=== PATIENT | male | born 1940 | race Asian ===

== ENCOUNTER → 2023-08-19 06:54 | Outpatient (REF) | payer MEDICARE, SELFPAY | LOC: RCS 06:54 | PROVIDERS: ATTENDING PHYSICIAN Internal Medicine Cardiovascular Disease; FAMILY PHYSICIAN Internal Medicine | DX: I25.118 Atherosclerotic heart disease of native coronary artery with other forms of angina pectoris (principal); R00.1 Bradycardia, unspecified | CPT/HCPCS: 78452; 93017; A9500; J2785 ==

== ENCOUNTER → 2024-01-05 10:16 | Outpatient (REF) | payer MEDICARE, SELFPAY | LOC: HWRAD 10:16 | PROVIDERS: ATTENDING PHYSICIAN Specialist; FAMILY PHYSICIAN Internal Medicine | DX: D41.02 Neoplasm of uncertain behavior of left kidney (principal) | CPT/HCPCS: 74178; Q9967 ==

== ENCOUNTER 2024-02-07 16:44 | Emergency (ER) | payer MEDICARE, SELFPAY ==
[2024-02-07 16:46] VITALS: BP 146/70
[2024-02-07 17:00] LABS: % Basophils 0.7 % (0-2); % Eosinophils 5.3 % (0-6); % Immature Granulocytes 0.1 % (0-0.5); % Lymphocytes 16.2 % (20.5-51.1); % Monocytes 8.8 % (1.7-9.3); % Neutrophils 68.9 % (42.2-75.2); Absolute Basophils 0.1 10^3/uL (0-0.2); Absolute Eosinophils 0.4 10^3/uL (0-0.7); Absolute Lymphocytes 1.1 10^3/uL (1.2-3.4); Absolute Monocytes 0.6 10^3/uL (0.1-0.6); Absolute Neutrophils 4.7 10^3/uL (1.4-6.5); Hematocrit 38.5 % (39.0-52.0); Hemoglobin 13.1 g/dL (13.0-18.0); Mean Platelet Volume 9.7 fL (7.4-10.4); Nucleated Red Blood Cells % 0 % (-); Platelet Count 144 10^3/uL (130-400); Red Blood Cell Count 4.23 10^6/uL (4.70-6.10); White Blood Cell Count 6.8 10^3/uL (4.8-10.8)
[2024-02-07 17:26] LABS: ALT (SGPT) 17 U/L (0-50); AST (SGOT) 24 U/L (17-59); Albumin 4.6 g/dl (3.5-5.0); Alkaline Phosphatase 82 U/L (38-126); Blood Urea Nitrogen 41 mg/dl (9-20); Calcium 10.1 mg/dl (8.4-10.2); Carbon Dioxide 25 mmol/L (22-30); Chloride 101 mmol/L (98-107); Glucose 203 mg/dl (70-99); Potassium 4.1 mmol/L (3.5-5.1); Sodium 141 mmol/L (135-145); Total Bilirubin 0.2 mg/dl (0.2-1.3); Total Protein 7.6 g/dl (6.3-8.2); eGFR 54.85
--- NOTE | 2024-02-07 21:11 | ED.GENMED ---
History of Present Illness
General
Chief Complaint: Back Pain
Source: patient
Exam Limitations: none
Time Seen by Provider: 02/07/24 20:36
History of Present Illness
History of Present Illness:
This is a 83 year old male that comes in with c/o right lower back pain. State that this started last night and he has had the pain all day. States that he was unable to sleep last night due to the pain. States that there was no fall or injury to
the back. States that he has urinary frequency every hour. Denies any fever, chills, chest pain, SOB, abd pain, nausea, vomiting, diarrhea, headache, dizziness, urinary burning.
Past History
Past History
ED Past Medical History: CAD, Cancer (Left kidney cancer with radiation), HTN, Hypercholesterolemia, NIDDM and Other (Intracranial bleed)
ED Past Surgical History: Cardiac (Stent)
Social History
Tobacco: Non-smoker
Alcohol: None
Personal:
Living: with family
Review of Systems
Review of Systems
All Other Systems: ROS reviewed and negative except as documented in HPI and ROS
Constitutional: Reports no symptoms; Denies fever or chills
EENT: Reports no symptoms
Respiratory: Reports no symptoms; Denies cough or trouble breathing
Cardiac: Reports no symptoms; Denies chest pain
ABD/GI: Denies abdominal pain, nausea, vomiting or diarrhea
: Reports frequency and flank pain (Right sided); Denies dysuria or urgency
Musculoskeletal: Reports back pain (Right low back pain)
Skin: Reports no symptoms
Neurological: Reports no symptoms; Denies dizzy or headache
Psychiatric: Reports no symptoms
Phy Exam
General Physical Exam
General Presentation: well appearing and no apparent distress
General age: appears stated age
General Skin: warm and dry
General Habitus: elderly
General Mental: alert
General Hydration: dry mucous membranes
ENT Exam
ENT Exam: TM's normal, pharynx normal and neck supple
Eye Exam
Eye Exam: EOMI
Cardiovascular Exam
Cardiovascular Exam: regular rate/rhythm, no edema, no murmur and normal peripheral pulses
Pulmonary Exam
Pulmonary Exam: lungs clear, no respiratory distress, no rales, chest non tender, no crackles, no rhonchi, no wheezing and no cough
Gastrointestinal Exam
Gastrointestinal Exam: normal bowel sounds, non tender, soft, no organomegaly, no pulsatile mass, non distended and no cva tenderness
Musculoskeletal Exam
Musculoskeletal Exam: full ROM, back pain (Low back pain tenderness with palpation) and no edema
Skin Exam
Skin Exam: normal color, warm/dry, no rash and no petechia
Psychiatric Exam
Psychiatric Exam: normal mood/affect
Course
Orders/Labs/Results
Orders:
Orders
02/07/24 16:53
CMP [Comprehensive Metabolic Panel] Urgent
Complete Blood Count/With Diff Urgent
02/07/24 21:10
CT Abd/pel Without Iv Or Oral Urgent
Comment: History of kidney cancer left
Reason For Exam: Right flank pain
0.9% Sodium Chloride 1000 ml [Nss] 1,000 ml IV BOLUS
02/07/24 21:11
Acetaminophen [Tylenol] 1,000 mg PO NOW STA
02/07/24 21:31
Urinalysis Reflex To Culture Urgent
Date Specimen was Collected: 02/07/24
Time Specimen was Collected: 21:12
Abnormal Lab Results
02/07/24 02/07/24
16:53 21:31
RBC 4.23 L 10^6/uL
(4.70-6.10)
Hct 38.5 L %
(39.0-52.0)
Absolute Lymphs (auto) 1.1 L 10^3/uL
(1.2-3.4)
Lymphocytes % 16.2 L %
(20.5-51.1)
BUN 41 H mg/dl
(9-20)
Glucose 203 H mg/dl
(70-99)
Urine Glucose 3+ A
(Negative)
02/07/24 16:53
02/07/24 16:53
Dehydration. Hyperglycemia, Urine negative for infection.
Vital Signs
Initial and Last Documented VS:
Initial Vital Signs
Temp Pulse Resp BP Pulse Ox
98.1 F 58 18 146/70 97
02/07/24 16:46 02/07/24 16:46 02/07/24 16:46 02/07/24 16:46 02/07/24 16:46
Last Documented Vital Signs
Temp Pulse Resp BP Pulse Ox
98.1 F 58 18 183/76 99
02/07/24 16:46 02/07/24 22:11 02/07/24 22:11 02/07/24 22:57 02/07/24 22:11
MDM/Problems Addressed
Differential Diagnosis Includes:
Musculoskeletal pain, Renal calculus, Metastatic disease, Shingles
MDM/Problems Addressed:
This is a 83 year old male that comes in with c/o right low back/flank pain. States that this started last night and he was unable to sleep. States that the pain continued all day. States that he also has urinary frequency.
Will check labs. Urine and get CT scan.
Back into see patient and . Explained that the CT shows Degenerative changes in the spine but there are no renal calculus. Patient at this time has no rash but he is concerned since this provider mentioned shingles that this is shingles but the
rash has not come out yet. Patient was requesting a prescription at this time but explained that none would be given unless he started with a rash. Explained that the nerves from the back wrap around to the abd and that this is most likely due to
his degenerative changes. Patient can use Tylenol for pain but would be causes of NSAIDS due to his history of kidney cancer. Patient to return with any concerns.
Chronic conditions affecting care: Cancer (Kidney)
Acute Exacerbation and/or Progression of Chronic Illness:
NA
*Radiology
Radiology exam reviewed: radiology read reviewed (CT-There is no evidence of acute pathology. There are no obstructing renal or ureteral calculi. There is no hydronephrosis or hydroureter. There is a stable 9mm probably benign low-density mass in
the neck of the pancreas. There is a stable 1cm low-density mass in the left adrenal which most likely ) and all reviewed NAD by ED Provider (CT cont- is adrenal adenoma. There is multilevel lumbar degenerative disc disease. There area stable 20%
compression fracture of the superior endplate of L2. Stable 2.5cm left renal cyst. Prostatomegaly. )
*Pulse Oximetry
Patient hypoxic: no
*EKG
Interpreted by ED Provider?: NA
Rate: EKG- N/A
*Underwear Trimmer Interpretation
Rate: Underwear Trimmer- N/A
*Critical Care Note
Total Time (30-74mins, 75-104mins- exclusive of procedures): Not Applicable
ED Attending Note
-
Portions of this chart may have been created with voice recognition software.� Occasional wrong word or��sound alike� substitutions may have occurred due to the inherent limitations of voice recognition software.
Discharge Plan
Departure
Patient Disposition: Home (Routine Discharge)
Date of Disposition: 02/07/24
Time of Disposition: 23:15
Patient with high blood pressure during this ER visit?: Yes
Condition: Good
Covid-19: Not Applicable
Discharge Problem:
Low back pain
Instructions: Low Back Pain (DC), BLOOD PRESSURE
Prescriptions:
No Action
multivitamin [Multi-Day] 1 EACH tablet
1 ea PO DAILY
ascorbic acid (vitamin C) [Vitamin C] 1,000 MG tablet
1,000 mg PO DAILY
diltiazem HCl 180 MG capsule,extended release 24hr
180 mg PO DAILY
tamsulosin 0.4 MG capsule
0.4 mg PO DAILY
Patient Comments:
HS
simvastatin 20 MG tablet
20 mg PO HS
Ca qkic-lxmrikqdq-tuit thistle [Liver-Kidney Cleanser] 1 EACH capsule
1 cap PO DAILY
omega 5-fwq-esk-fish oil 1 EACH capsule
1 ea PO DAILY
metoprolol succinate 100 MG tablet extended release 24 hr
100 mg PO DAILY
valsartan 160 MG tablet
160 mg PO DAILY
nitroglycerin 0.4 MG tablet, sublingual
0.4 mg sublingual [id number] PRN (Reason: chest pain) Qty: 25 2RF
metformin 500 MG tablet
500 mg PO BID Qty: 0 0RF
Rx Instructions:
HOLD post cath- do not resume until medical lab scientist calls with lab results. See Metformin sheet for instructions
clopidogrel 75 MG tablet
75 mg PO DAILY Qty: 30 11RF
aspirin 81 MG tablet,delayed release (DR/EC)
81 mg PO DAILY Qty: 1 0RF
semaglutide [Rybelsus] 7 MG tablet
1 tab PO DAILY
Patient Comments:
30 minutes pre breakfast
Referrals:
UNKNOWN - PT DOES,NOT KNOW [Family Provider] -
Activity Restrictions/Additional Instructions:
As discussed, your blood work shows dehydration. Please increase your water intake to 8-8oz glasses daily. Your CT is negative for any renal calculus but there is degenerative changes in the spine. This is most likely the cause of your back pain as
the nerves wrap around form the back to the abdomen. You may use Tylenol 1000mg every 6 hours as needed for pain. You may also use Lidoderm patch which is over the counter to the low back to help with pain. Follow up with the family doctor for
recheck. IF YOU HAVE INCREASED OR CHANGING PAIN, OR YOU HAVE ANY OTHER CONCERNS PLEASE RETURN TO THE EMERGENCY ROOM.
Interventions
Interventions:
*Risk Screen - Suicide Last Done: 02/07/24 16:46
*General Assessment Last Done: 02/07/24 16:46
*Neglect/Abuse Screening Last Done: 02/07/24 16:46
*ED COVID-19 Vaccine History Last Done: 02/07/24 16:46
ED-Musculoskeletal Assessment Last Done: 02/07/24 21:20
Discharge Date and Time
Print Language: HUNGARIAN
[2024-02-07] MEDS: NSS 1000 IV (21:35)
[2024-02-07 21:41] LABS: Urine Albumin Negative (Neg - Trace); Urine Bilirubin Negative (Negative); Urine Character Clear (Clear); Urine Color Yellow; Urine Glucose 3+ (Negative); Urine Ketone Negative (Negative); Urine Leukocyte Negative (Negative); Urine Nitrite Negative (Negative); Urine Occult Blood Negative (Negative); Urine Specific Gravity 1.015 (<1.030); Urine Urobilinogen Negative (Neg - 1+)
[2024-02-07 22:11] VITALS: BP 209/83
[2024-02-07 22:57] VITALS: BP 183/76
== END 2024-02-07 23:22 | disposition home or self-care (01) ==
LOC: EMR 16:44
PROVIDERS: Clinical Nurse Specialist Family Health; Emergency Medicine; EMERGENCY PHYSICIAN Emergency Medicine
DX: M54.50 Low back pain, unspecified (principal); I25.10 Atherosclerotic heart disease of native coronary artery without angina pectoris; I10 Essential (primary) hypertension; E78.00 Pure hypercholesterolemia, unspecified; E11.65 Type 2 diabetes mellitus with hyperglycemia; Z85.528 Personal history of other malignant neoplasm of kidney; Z95.5 Presence of coronary angioplasty implant and graft
CPT/HCPCS: 99284; 74176; 80053; 81003; 85025

== ENCOUNTER → 2024-11-08 13:00 | Outpatient (REF) | payer MEDICARE, SELFPAY ==
[2024-11-08 13:53] LABS: Hematocrit 40.6 % (39.0-52.0); Hemoglobin 13.8 g/dL (13.0-18.0); Mean Corp Hgb Conc. 34.0 g/dL (33.0-37.0); Mean Corpuscular Volume 92.1 fL (80.0-94.0); Nucleated Red Blood Cells % 0 % (-); Platelet Count 142 10^3/uL (130-400); Red Cell Dist. Width 13.4 % (11.5-14.5)
[2024-11-08 13:58] LABS: ALT (SGPT) 13 U/L (0-50); AST (SGOT) 19 U/L (17-59); Albumin 4.8 g/dl (3.5-5.0); Alkaline Phosphatase 47 U/L (38-126); Blood Urea Nitrogen 37 mg/dl (9-20); Calcium 9.7 mg/dl (8.4-10.2); Carbon Dioxide 31 mmol/L (22-30); Chloride 101 mmol/L (98-107); Glucose 201 mg/dl (70-99); Potassium 4.9 mmol/L (3.5-5.1); Sodium 138 mmol/L (135-145); Total Protein 8.3 g/dl (6.3-8.2); eGFR 46.19
== END ==
LOC: SDSPAT 13:00
PROVIDERS: ATTENDING PHYSICIAN Student in an Organized Health Care Education/Training Program; FAMILY PHYSICIAN Internal Medicine; REFERRING PHYSICIAN Internal Medicine Cardiovascular Disease
DX: I25.118 Atherosclerotic heart disease of native coronary artery with other forms of angina pectoris (principal)
CPT/HCPCS: 36415; 80053; 85025; 93005

== ENCOUNTER 2024-11-14 10:56 | Day surgery (SDC) | payer MEDICARE, SELFPAY ==
[2024-11-08 13:22] VITALS: BMI 21.8
[2024-11-14] VITALS (17 sets, daily range): BP systolic 76–189; BP diastolic 57–87
[2024-11-14 11:45] LABS: Glucose - Point of Care 134 mg/dl (70-99)
[2024-11-14 15:28] LABS: Glucose - Point of Care 107 mg/dl (70-99)
[2024-11-14 16:31] LABS: ACT-LR - POC 337 Seconds (116-155)
[2024-11-14 16:55] LABS: ACT-LR - POC 358 Seconds (116-155)
--- NOTE | 2024-11-14 19:33 | PTCARENOTE ---
received patient from catheter finisher and inspector with Right R band intact, distal pulse weak, monitor shows NSR. patient c/o BP cuff on left arm therefore put on right calf, still complained but informed patient we need to monitor his VSS. post EKG completed,
oriented to room and surroundings. at bedside. patient eating dinner.
--- NOTE | 2024-11-14 19:38 | ITS.CL.PN ---
Centrifugal Casting Machine Tender - Procedure Note
Procedure
Procedure Note:
CARDIAC CATHETERIZATION REPORT
Date of Procedure: 11/14/2024
Referring: Dr. Deonna Watson MD
Indication: CCS class III angina despite maximally tolerated medical therapy and large area ischemia on cardiac stress test
PROCEDURE(S)
1. left heart catheterization
2. coronary angiography
3. iFR diagonal
4. PCI with LOYDA to mid-LCx
5. IVUS of LCx
6. POBA of Ramus
ACCESS: 6F right radial artery (closure: radial band)
CATHETERS
1. 6F JR4
2. 6F JL3.5
3. 6F EBU3.5 guide catheter
MODERATE SEDATION: 75 minutes of moderate sedation was utilized. An independent medical staff manager was present to assist with and help manage the patient's level of consciousness and physiologic status.
HEMODYNAMIC DATA
LV 146/11 (EDP 23) mmHg
AO 160/65 (mean 104) mmHg
CORONARY ANGIOGRAPHY
Dominance: right
LM: large with minimal disease
LAD: large vessel giving rise to a single diagonal branch before being occluded within stent. There is an eccentric approximately 50% stenosis in the proximal LAD and diffuse mild ISR extending to the takeoff of the diagonal which itself has mild
diffuse disease. The LAD beyond the diagonal takeoff is 100% occluded within stent with no collaterals visualized to the apical LAD from either RCA or LM injections.
Ramus: small-moderate caliber vessel with a 95% proximal occlusion and diffuse mild disease
LCx: moderate caliber vessel giving rise to a small OM1, small jailed OM2, and moderate caliber OM3. There is a stent in the mid-vessel spanning OM2 with severe ISR
RCA: large vessel giving rise to a large RPDA and several small RPL branches. There is diffuse mild disease.
iFR of diagonal branch
An Omni wire was flushed and zeroed outside the body and then advanced to the left main. The wire introducer was removed and the catheter flushed with saline, after which pressure of the wire and guide were normalized. The wire was advanced to the
mid diagonal branch and iFR recorded at 0.93. iFR pullback was performed noting a diffuse pattern throughout the diagonal and proximal LAD. On return to the left main, iFR appropriately normalized to ~1.0, confirming lack of wire drift.
PCI with LOYDA to LCx and POBA of ramus intermedius
Heparin was given to maintain ACT>300. A Runthrough wire was placed in the OM3 and initial lesion preparation preformed with a 2.0 semicompliant balloon followed by a 2.5 NC balloon with full expansion. The vessel was stented with a 2.5x38 mm [place]
Story LOYDA covering the entire prior stented segment and a shorter segment of tuscarora disease proximally. IVUS demonstrated a 2.75 mm proximal reference vessel diameter. Post dilation was performed with a 2.5 mm NC balloon to high pressure
throughout including to 22 asa for 30 seconds at a focal area of mild under-expansion. Post dilation from this point back to the proximal stent edge was performed with a 2.75 mm NC balloon to high pressure. Final angiographic result was excellent.
Attention was then turned to the Ramus branch. While a small-moderate caliber vessel, the tertiary supplied was felt to be significant enough to warrant intervention in the setting of the patient's refractory symptoms. Given the high grade nature of
the disease, it was hoped that flow voodoo would result in improvement in the vessel caliber to allow for PCI with LOYDA. The Ramus required a Whisper wire for successful wiring. Lesion preparation was performed with a 2.0 semicompliant balloon
with full expansion at nominal pressure. Angiography demonstrated significant improvement in lesion appearance with only mild residual stenosis. Despite this, the vessel lumen did not improve markedly and did not appear to be of adequate caliber to
place even a 2.0 mm stent safely so decision was made to accept the POBA result. The wire and guide were removed and a TR band placed. The patient was loaded with 600 mg Plavix and admitted for overnight observation.
RADIATION: dose 976 mGy; DAP 63 Gy*cm2; fluoroscopy time 22.4 min
CONCLUSIONS
1. Coronary artery disease as described with new EMPLOYMENT CLERK of the mid-LAD (with no collaterals visualized), iFR negative diffuse disease in the proximal LAD extending into the single diagonal branch, severe ISR of the mid-LCx, and severe stenosis of a
small-moderate caliber Ramus branch.
2. Mildly elevated LV filling pressure and no aortic stenosis.
3. Successful IVUS-guided PCI with LOYDA to the mid-LCx with a 2.5x38 mm Jesse Story LOYDA post-dilated to high pressure with a 2.5 mm NC balloon throughout and with a 2.75 mm NC balloon proximally.
4. Successful POBA of the Ramus with a 2.0 mm semicompliant balloon inflated to nominal pressure. Despite flow voodoo, vessel caliber assess as inadequate for LOYDA placement so POBA result accepted.
RECOMMENDATIONS
1. Aggressive secondary prevention of CAD with goal LDL<55 and aggressive risk factor control
2. Assess anginal response to PCI; if significant residual angina despite OMT, consider stress testing (PET or MRI) of LAD. If territory ischemic, could consider referral to dedicated EMPLOYMENT CLERK PCI stone processing machine operator for LAD EMPLOYMENT CLERK PCI. Given lack of visualized
collaterals, high chance that this territory is infarcted and non-viable.
Copy to: Dr. Deonna Watson MD (administrative project coordinator); Davis Moses MD (PCP)
Signed: Orion Maldonado MD, PhD
[2024-11-14] MEDS: NORVASC 10 MG PO (20:20)
[2024-11-14] MEDS: FLOMAX 0.4 MG PO (20:20)
[2024-11-14] MEDS: LIPITOR 10 MG PO (20:22)
[2024-11-14 22:04] LABS: Glucose - Point of Care 214 mg/dl (70-99)
--- NOTE | 2024-11-15 03:13 | PTCARENOTE ---
Addendum entered by Juanita Castro RN 11/15/24 06:04:
pt refused blood work this morning
Original Note:
Pt SB on monitor. Right wrist post cath dsg CDI. Pt denies any pain this shift. OOB with x1 assist.
[2024-11-15 04:14] VITALS: BP 185/87
[2024-11-15 04:34] VITALS: BMI 21.0
[2024-11-15 06:53] VITALS: BP 166/74
[2024-11-15 06:57] LABS: Glucose - Point of Care 127 mg/dl (70-99)
[2024-11-15] MEDS: IMDUR (EXTENDED RELEASE) 30 MG PO (08:33)
[2024-11-15] MEDS: ORETIC 12.5 MG PO (08:33)
[2024-11-15] MEDS: FARXIGA 10 MG PO (08:33)
[2024-11-15] MEDS: PLAVIX 75 MG PO (08:33)
[2024-11-15] MEDS: TOPROL XL 100 MG PO (08:33)
[2024-11-15] MEDS: ASPIR LOW (ENTERIC COATED) 81 MG PO (08:33)
[2024-11-15] MEDS: BENICAR 40 MG PO (08:34)
[2024-11-15 09:28] LABS: Hematocrit 39.6 % (39.0-52.0); Hemoglobin 13.5 g/dL (13.0-18.0); Mean Corp Hgb Conc. 34.1 g/dL (33.0-37.0); Mean Corpuscular Volume 90.8 fL (80.0-94.0); Platelet Count 139 10^3/uL (130-400); Red Cell Dist. Width 13.3 % (11.5-14.5)
[2024-11-15 09:51] LABS: Blood Urea Nitrogen 25 mg/dl (9-20); Calcium 9.2 mg/dl (8.4-10.2); Carbon Dioxide 24 mmol/L (22-30); Chloride 105 mmol/L (98-107); Estimated Creatinine Clearance 49 ml/min; Glucose 257 mg/dl (70-99); HDL Cholesterol 50 mg/dl; LDL Cholesterol, Calculated 37 mg/dl; Potassium 3.7 mmol/L (3.5-5.1); Sodium 137 mmol/L (135-145); Very Low Density Lipoprotein 29 mg/dl (0-30); eGFR > 60.00
--- NOTE | 2024-11-15 09:52 | W.PN.CARDCBS ---
Addendum entered and electronically signed by Js Zambrano MD 11/15/24 10:16:
I saw and examined the patient.
The WARM IN WORKER's note was reviewed and I agree with the note.
Comment: Feeling well Cr stable, d/c
Original Note:
Today's Communication / Plan
-
Send BMP, CBC now
if stable, OK for d/c
DAPT w/asa, plavix- stop aggrenox
Impression / Plan
-
PCP: Davis Moses MD
CDY: Valentina Watson MD
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
Prior cardiac history includes CAD w/LCx PCI (2011) and LAD PCI x3 LOYDA ([id number], 2016) at OSH. Now presents with 2 month history intermittent exertional CP/SOB. Brought to director labor standards 11/14, s/p angioplasty and LOYDA to LCx instent restenosis as
well as angioplasty only to Ramus artery.
IMPRESSION:
CAD
s/p angioplasty/LOYDA to LCx ISR, POBA Ramus, 11/14/2024
Prior LCx PCI (2011)
Prior zywk-rnx-yijy LAD PCI x3 LOYDA (2016)
CVA (2022) w/memory/balance residual deficits
SDH, s/p fall (2017)
HTN
HLD
DM
CKD3a
Prior GIB w/transfusion
Anemia
BPH
JUANITA
PLAN:
Tele- SB 50s w/PAC, no VT/arrhythmia
radial cath site stable
DAPT w/asa, plavix- will stop aggrenox completely
Pt refused labs this morning- discussed the importance of labwork and creat post dye load- and pt understand and labs just sent/pending
Pre-cath Creat 1.5, GFR 46
continue isosorbide, metoprolol, olmesartan/HCT
BP elevated 150-160s- continue above meds plus amlodipine- monitor trends
lipid profile noted- continue pitavastatin
anemia noted and Hgb stable
Cardiac rehab consulted
If labs WNL, ok for d/c later.
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
Subjective
Date of Service: November 15, 2024
Denies cp/palps/dyspnea
oob ambulating
radial cath site without pain
Objective
Labs:
11/15/24 09:09
11/15/24 09:09
Labs
Hgb 13.5 g/dL (13.0-18.0) 11/15/24 09:09
Hct 39.6 % (39.0-52.0) 11/15/24 09:09
Plt Count 139 10^3/uL (130-400) 11/15/24 09:09
Sodium 137 mmol/L (135-145) 11/15/24 09:09
Potassium 3.7 mmol/L (3.5-5.1) 11/15/24 09:09
BUN 25 mg/dl (9-20) H 11/15/24 09:09
Creatinine 1.0 mg/dL (0.7-1.3) 11/15/24 09:09
Glucose 257 mg/dl (70-99) H 11/15/24 09:09
Vital Signs and I&O:
Vital Signs
Temp Pulse Resp BP Pulse Ox
98.2 F 72 16 166/74 98
11/15/24 06:51 11/15/24 07:00 11/15/24 06:51 11/15/24 06:53 11/15/24 06:51
Vital Signs
Temp Pulse Resp BP Pulse Ox
98.2 F 72 16 166/74 98
11/15/24 06:51 11/15/24 07:00 11/15/24 06:51 11/15/24 06:53 11/15/24 06:51
Intake & Output
11/13/24 11/14/24 11/15/24 11/16/24
06:59 06:59 06:59 06:59
Intake Total 200 / 200
Output Total 925 / 925 400 / 400
Balance -725 / -725 -400 / -400
Physical Exam
Physical Exam
AAOx3, MAEE 5/
RRR S1 S2 no murmurs
CTA bilat, non labored
soft abd, + bs
right radial cath site without ht/bleeding, non tender
bilat extremities w/palpable distal pulses, no edema
[2024-11-15 10:08] LABS: Glycohemoglobin (HgbA1c) 7.0 % (4.0-5.6)
--- NOTE | 2024-11-15 10:17 | W.DS.TRANS ---
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
-
Discharge Instructions:
Discharge Diagnosis/Procedures Angioplasty with stent to Left Circumflex artery
, and angioplasty only of ramus artery
Diet Low Cholesterol,Diabetic, Carb Controlled
Driving Restrictions No driving for 24 hours
Other Services Cardiac Rehab
Instructions:
Stand-Alone Forms: DC Instructions- Cath/EP Lab
Changes to Home Medications: Yes
Discharge Medications:
DC Medications w/original date entered in [employer] ([employer])
clopidogrel 75 mg tablet 75 mg PO DAILY ##30 11/09/16
metoprolol succinate 100 mg tablet,extended release 24 hr 100 mg PO DAILY 11/09/16
nitroglycerin 0.4 mg sublingual tablet 0.4 mg sublingual [id number] PRN chest pain #25 tabs 11/09/16
tamsulosin 0.4 mg capsule 0.4 mg PO HS 11/09/16
aspirin 81 mg tablet,delayed release 81 mg PO DAILY #1 tab 11/20/16
amlodipine 10 mg tablet 10 mg PO HS 11/07/24
empagliflozin 25 mg tablet (Jardiance) 25 mg PO DAILY 11/07/24
isosorbide mononitrate 30 mg tablet,extended release 24 hr 30 mg PO DAILY 11/07/24
metformin 500 mg tablet 500 mg PO BIDWMEAL 11/07/24
multivitamin 1 tab PO DAILY 11/07/24
olmesartan 40 mg-hydrochlorothiazide 12.5 mg tablet 1 tab PO DAILY 11/07/24
pitavastatin calcium 2 mg tablet (Livalo) 2 mg PO HS 11/07/24
vitamin A-vitamin C-vit E-min tablet 1 tab PO DAILY 11/07/24
Home Medication Changes
STOP: aggrenox
Pending Results: No
== END 2024-11-15 10:50 | disposition home or self-care (01) ==
LOC: CATH 10:56
PROVIDERS: Nurse Practitioner Adult Health; ATTENDING PHYSICIAN Student in an Organized Health Care Education/Training Program; FAMILY PHYSICIAN Internal Medicine; OTHER PHYSICIAN Internal Medicine Cardiovascular Disease
DX: I25.119 Atherosclerotic heart disease of native coronary artery with unspecified angina pectoris (principal); I12.9 Hypertensive chronic kidney disease with stage 1 through stage 4 chronic kidney disease, or unspecified chronic kidney disease; D64.9 Anemia, unspecified; E11.22 Type 2 diabetes mellitus with diabetic chronic kidney disease; E78.5 Hyperlipidemia, unspecified; G47.33 Obstructive sleep apnea (adult) (pediatric); Z95.5 Presence of coronary angioplasty implant and graft; N40.0 Benign prostatic hyperplasia without lower urinary tract symptoms; M48.56XD Collapsed vertebra, not elsewhere classified, lumbar region, subsequent encounter for fracture with routine healing; R91.8 Other nonspecific abnormal finding of lung field; Z79.899 Other long term (current) drug therapy; Z79.02 Long term (current) use of antithrombotics/antiplatelets; Z79.82 Long term (current) use of aspirin; Z79.84 Long term (current) use of oral hypoglycemic drugs; I69.811 Memory deficit following other cerebrovascular disease; I69.898 Other sequelae of other cerebrovascular disease; N18.31 Chronic kidney disease, stage 3a
CPT/HCPCS: 92978; 99152; 99153; 80048; 80061; 82962; 83036; 85027; 85347; 92920; 93005; 93458; 93799; C1725; C1753; C1769; C1874; C1894; C9600; Q9967

== ENCOUNTER → 2025-01-12 08:56 | Outpatient (REF) | payer MEDICARE, SELFPAY | LOC: RAD 08:56 | PROVIDERS: ATTENDING PHYSICIAN Specialist; FAMILY PHYSICIAN Internal Medicine | DX: D41.02 Neoplasm of uncertain behavior of left kidney (principal); N40.1 Benign prostatic hyperplasia with lower urinary tract symptoms | CPT/HCPCS: 74178; Q9967 ==

== ENCOUNTER 2025-01-26 09:35 | Emergency (ER) | payer MEDICARE, SELFPAY ==
[2025-01-26 09:36] VITALS: BP 136/68
[2025-01-26 11:15] LABS: Hematocrit 43.0 % (39.0-52.0); Hemoglobin 14.4 g/dL (13.0-18.0); Mean Corp Hgb Conc. 33.5 g/dL (33.0-37.0); Mean Corpuscular Volume 91.1 fL (80.0-94.0); Nucleated Red Blood Cells % 0 % (-); Platelet Count 147 10^3/uL (130-400); Red Cell Dist. Width 13.7 % (11.5-14.5)
[2025-01-26 11:37] LABS: Blood Urea Nitrogen 35 mg/dl (9-20); Calcium 9.5 mg/dl (8.4-10.2); Carbon Dioxide 26 mmol/L (22-30); Chloride 104 mmol/L (98-107); Estimated Creatinine Clearance 42 ml/min; Glucose 203 mg/dl (70-99); Potassium 4.5 mmol/L (3.5-5.1); Sodium 138 mmol/L (135-145); eGFR > 60.00
--- NOTE | 2025-01-26 14:50 | ED.GENMED ---
History of Present Illness
General
Chief Complaint: Head Injury
Source: patient and spouse
Exam Limitations: none
Time Seen by Provider: 01/26/25 10:42
Nursing documentation reviewed up to this point in time: agreed with
History of Present Illness
History of Present Illness:
Note:
CHIEF COMPLAINT(S)
Head trauma and associated pain
HISTORY OF PRESENT ILLNESS
The patient is an 84-year-old male who presented after experiencing head trauma during a golf outing. According to his , the patient hit the side of his head on a golf cart bolt. The incident resulted in pain that the patient describes as
sensitive and troublesome when lying down to sleep. He is also experiencing discomfort when taking deep breaths. The patient is on anticoagulant medication�specifically clopidogrel, due to having a heart stent inserted in October of the previous year.
There is no bleeding reported at the site of impact. Pain was initially severe but has reportedly decreased somewhat over time. The pain radiates down from the site of impact and is present on the same side of the head where the trauma occurred.
ADDITIONAL HISTORY OBTAINED FROM SOURCES OTHER THAN THE PATIENT
The patients provided details about the patients condition and circumstances of the incident. She noted the patients use of clopidogrel and his history of undergoing a heart stent procedure.
PHYSICAL EXAM
General: Alert, no acute distress.
Skin: Warm, dry.
Head: Normocephalic, atraumatic, tenderness on the affected area but no bleeding.
Neck: Supple, trachea midline, no abnormalities noted.
Eye, Ears, Nose, Mouth, and Throat: Oral mucosa moist.
Cardiovascular: Normal peripheral perfusion, No edema.
Respiratory: Respirations are non-labored.
Gastrointestinal: Abdomen nondistended.
Back: Normal range of motion, Normal alignment.
Musculoskeletal: Normal range of motion, normal strength.
Neurological: Alert and oriented to person, place, time, and situation, No focal neurological deficit observed.
Psychiatric: Cooperative, appropriate mood & affect.
PLAN
A contrast-enhanced computed tomography scan of the head and neck arteries is ordered to rule out any underlying vascular injuries due to the trauma, particularly given the patients history of anticoagulant use. An intravenous line will be placed
for contrast administration.
DIFFERENTIAL DIAGNOSIS
The Differential Diagnosis includes, in no particular order and is not limited to:
1. Traumatic subdural hematoma
2. Contusion of the scalp
3. Cervical artery dissection
4. Traumatic intracranial hemorrhage
5. Concussion
6. Epidural hematoma
7. Cervical spine injury
8. Venous sinus thrombosis
9. Soft tissue bruising
10. Traumatic brain injury
CARE-UPDATE
01/26/25 - 14:49
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 Neurology consultation recommended follow-up with a neurovascular surgeon. Continue aspirin and Plavix. Patient is stable
and cleared for discharge.
Disposition:
SUMMARY OF ENCOUNTER
An 84-year-old male presented to the emergency department after experiencing a head trauma during a golf outing. The patient hit the side of his head on a golf cart bolt, resulting in pain that radiated and discomfort with deep breaths. On
examination, tenderness was noted on the affected area but no active bleeding. A CT scan was ordered to rule out any vascular injuries due to anticoagulant use. The CT scan revealed no intracranial hemorrhage or dissection but identified a focal
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 The patient is stable and discharged with instructions to continue current medications.
DISPOSITION
Discharge
ASSESSMENT
The patient presented with head trauma resulting in a contusion and strain. 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
PLAN
The patient is advised to continue current medications including aspirin and clopidogrel (Plavix). 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
INDEPENDENT REVIEW OF LABS AND INTERPRETATION OF TESTS
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
MEDICATION RECONCILIATION
The patient will continue on aspirin and clopidogrel (Plavix).
MEDICAL DECISION MAKING
- Number and Complexity of Problems Addressed: Chronic conditions affecting care include heart stent placement and anticoagulant therapy. Differential diagnoses considered include traumatic subdural hematoma, contusion of the scalp, cervical artery
dissection, traumatic intracranial hemorrhage, concussion, epidural hematoma, cervical spine injury, venous sinus thrombosis, soft tissue bruising, and traumatic brain injury.
- Data:
Category 1:
My independent interpretation of the CT scan revealed no intracranial hemorrhage or dissection; incidental right anterior cerebral artery occlusion.
Category 2:
Clinical information was obtained from an independent historian, namely, the patients .
Category 3:
Discussion of management with neurology, and a recommendation for follow-up with a neurovascular surgeon.
- Risk:
Consideration of Admission/Observation: Escalation of care including admission/observation was considered given the complexity and risk of the patients presenting complaint, exam findings, and their underlying comorbidities. However, ultimately I
feel the patient is safe for outpatient management with close follow-up due to reassuring work-up findings and stable vitals.
DIAGNOSIS
- Contusion and strain of the head and neck, laterality unspecified - ICD-10 Code: S00.83XA
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
Past History
Past History
ED Past Medical History: CAD, Cancer (Left kidney cancer with radiation), HTN, Hypercholesterolemia, NIDDM and Other (Intracranial bleed)
ED Past Surgical History: Cardiac (Stent)
Social History
Tobacco: Non-smoker
Alcohol: None
Personal:
Living: with family
Phy Exam
Physical Exam
Physical Exam:
.
Course
Orders/Labs/Results
Orders:
Orders
01/26/25 09:38
CT Cervical Spine W/o Iv Contr Urgent
Comment:
Reason For Exam: Trauma
CT Head W/o Iv Contrast Urgent
Comment:
Reason For Exam: Trauma
01/26/25 10:50
CT Head & Neck Angio W/wo IV Urgent
Comment:
Reason For Exam: left side neck and head pain
IV Insert/Care/Rem.- Treatment PRN
01/26/25 11:00
Basic Metabolic Panel Urgent
Complete Blood Count/With Diff Urgent
Abnormal Lab Results
01/26/25
11:00
Lymphocytes % 17.9 L %
(20.5-51.1)
Eosinophils % 6.8 H %
(0-6)
BUN 35 H mg/dl
(9-20)
Glucose 203 H mg/dl
(70-99)
01/26/25 11:00
01/26/25 11:00
Vital Signs
Initial and Last Documented VS:
Initial Vital Signs
Temp Pulse Resp BP Pulse Ox
98.3 F 56 16 136/68 97
01/26/25 09:36 01/26/25 09:36 01/26/25 09:36 01/26/25 09:36 01/26/25 09:36
Last Documented Vital Signs
Temp Pulse Resp BP Pulse Ox
98.3 F 56 16 136/68 97
01/26/25 09:36 01/26/25 09:36 01/26/25 09:36 01/26/25 09:36 01/26/25 09:36
*Pulse Oximetry
SaO2: 97
Oxygen Mode of Delivery: Room air
Patient hypoxic: no
*Critical Care Note
Total Time (30-74mins, 75-104mins- exclusive of procedures): Not Applicable
ED Attending Note
-
Portions of this chart may have been created with voice recognition software.� Occasional wrong word or��sound alike� substitutions may have occurred due to the inherent limitations of voice recognition software.
Discharge Plan
Departure
Patient Disposition: Home (Routine Discharge)
Date of Disposition: 01/26/25
Time of Disposition: 14:16
Patient with high blood pressure during this ER visit?: Yes
Condition: Good
Discharge Problem:
Head injury
Instructions: Head Injury in Adults (DC)
Prescriptions:
No Action
tamsulosin 0.4 MG capsule
0.4 mg PO HS
metoprolol succinate 100 MG tablet extended release 24 hr
100 mg PO DAILY
nitroglycerin 0.4 MG tablet, sublingual
0.4 mg sublingual [id number] PRN (Reason: chest pain) Qty: 25 2RF
clopidogrel 75 MG tablet
75 mg PO DAILY Qty: 30 11RF
aspirin 81 MG tablet,delayed release (DR/EC)
81 mg PO DAILY Qty: 1 0RF
multivitamin Tablet
1 tab PO DAILY
isosorbide mononitrate 30 mg Tablet Extended Release 24 Hr
30 mg PO DAILY
amlodipine 10 mg Tablet
10 mg PO HS
vitamin A-vitamin C-vit E-min Tablet
1 tab PO DAILY
olmesartan-hydrochlorothiazide 40-12.5 mg tablet
1 tab PO DAILY
pitavastatin calcium [Livalo] 2 mg tablet
2 mg PO HS
Jardiance 25 mg tablet
25 mg PO DAILY
metformin 500 MG tablet
500 mg PO BIDWMEAL
Referrals:
Olvin Yanez MD [Family Provider, General]
Activity Restrictions/Additional Instructions:
Continue aspirin and plavix. Follow up with neurosurgeon, Dr. Jason Hendrix at . Your CT scan showed a possible clot in the brain that is incidental. It does not appear to be causing any of your symptoms. Follow-up with the
neurosurgeon for further evaluation.
Interventions
Interventions:
*Risk Screen - Suicide Last Done: 01/26/25 11:00
ED- Neurological Assessment Last Done: 01/26/25 11:00
ED-Skin Assessment Last Done: 01/26/25 11:00
Discharge Date and Time
Print Language: COLOMBIAN
== END 2025-01-26 14:45 | disposition home or self-care (01) ==
LOC: EMR 09:35
PROVIDERS: EMERGENCY PHYSICIAN Emergency Medicine; FAMILY PHYSICIAN Internal Medicine
DX: S09.90XA Unspecified injury of head, initial encounter (principal); X58.XXXA Exposure to other specified factors, initial encounter; I25.10 Atherosclerotic heart disease of native coronary artery without angina pectoris; I10 Essential (primary) hypertension; E78.00 Pure hypercholesterolemia, unspecified; E11.9 Type 2 diabetes mellitus without complications; Z79.01 Long term (current) use of anticoagulants; Z79.02 Long term (current) use of antithrombotics/antiplatelets; Z85.528 Personal history of other malignant neoplasm of kidney; Z95.5 Presence of coronary angioplasty implant and graft
CPT/HCPCS: 99284; 70450; 70496; 70498; 72125; 80048; 85025; Q9967